=== PATIENT | male | born 1980 | race Caucasian/White ===

== ENCOUNTER 2016-04-19 17:03 | Inpatient (IN) | payer BC ==
[~2016-04-19] VITALS: Ht 185.4 cm; Wt 106.0 kg
[2016-04-22] MEDS ORDERED: ZESTRIL DPS5 MG PO (10:30)
[2016-04-22] MEDS ORDERED: FLAGYL-DPS500 MG PO (10:31)
[2016-04-22] MEDS ORDERED: CIPRO DPS500 MG PO (10:31)
[2016-04-22] MEDS ORDERED: TYLENOL325 MG PO (10:31)
--- NOTE | 2016-04-23 08:29 | HP ---
ADMIT: 04/19/2016 RM/LOC: [address] [facility] MR#: [id number] [address] [facility] [place], [place] [address] [address] [place] [address] History and Physical SEX: M AGE: 36 : 1980 DATE OF SERVICE: HISTORY OF PRESENT ILLNESS: This is a 36-year-old male seen in transfer from [place] with complaints of left lower quadrant abdominal pain. This started on Thursday of this week and bothered him intermittently through the week. He had persistence of the pain yesterday, which prompted a visit to the clinic today. Dr. Maravilla saw him in clinic and noticed that he had some tenderness on exam and subsequently sent him to the ER for evaluation with labs and a CT scan. CT scan was performed, which demonstrated perforated diverticulitis. He was subsequently transferred here for definitive care. He describes the pain as mild in nature. He did have some fever 2 of the nights this week, but has not had a fever today. He has never previously had episode of diverticulitis. He is otherwise without recent change in his health. PAST MEDICAL HISTORY: Hypertension. Prior traumatic head injury with compressed skull fracture at age 7. CURRENT MEDICATIONS: Lisinopril. ALLERGIES: NO KNOWN MEDICAL ALLERGIES. PAST SURGICAL HISTORY: None. FAMILY HISTORY: Significant for hypertension SOCIAL HISTORY: He quit smoking 3 years ago, had a prior history of smoking from the age of 19 before that. REVIEW OF SYSTEMS: A 10-point review of systems was performed. The gastrointestinal symptoms are listed in the history of present illness, and the remainder of the review of systems is negative for change. PHYSICAL EXAMINATION: GENERAL: Abida is alert, oriented, and in no acute distress. VITAL SIGNS: His admission vital signs; temperature 97.2, pulse of 80, respiratory rate of 18, and blood pressure 129/80. HEENT: Sclerae appear grossly anicteric. NECK: Trachea is midline. LUNGS: Clear bilaterally. HEART: Regular rate and rhythm. ABDOMEN: Tender to palpation with only mild guarding in the left lower quadrant with deep palpation. There is no josé miguel diffuse peritoneal sign. No rebound tenderness currently. No palpable masses. EXTREMITIES: Calves are soft bilaterally with no clubbing, cyanosis, or ADMIT: 04/19/2016 RM/LOC: [address] [facility] MR#: [id number] [address] [facility] [address] [place], [place] [address] [address] [place], [place] [id number] History and Physical SEX: M AGE: 36 : 1980 edema. Cranial nerves were tested and intact. IMPRESSION: Perforated diverticulitis. PLAN: I have recommended continuing conservative measures with IV antibiotic therapy and bowel rest. I discussed the spectrum of response to this therapy including clinical deterioration, necessitating laparotomy, bowel resection, colostomy, or at least repeat CT and possible abscess drainage if it is formed. If he has clinical improvement, would plan for IV and gradually transition to p.o. antibiotic therapy with outpatient elective colonoscopy and further discussion regarding elective colectomy. I discussed this again in detail with Abida, and he understands the plan and agrees. Nikolay Alford MD/ baljinder JOB #: [id number] CC: Nikolay Alford, Attending Physician Nikolay Alford, Family Physician
--- NOTE | 2016-04-30 08:55 | DS ---
ADMIT: 04/19/2016 RM/LOC: [address] [facility] MR#: [id number] [address] [facility] [address] [place], [place] [address] [address] [place] [address] Discharge Summary SEX: M AGE: 36 : 1980 ADMISSION DATE: 04/19/2016 DISCHARGE DATE: 04/21/2016 ADMISSION DIAGNOSIS: Perforated diverticulitis. DISCHARGE DIAGNOSIS: Perforated diverticulitis. REASON FOR ADMISSION: For details of the history and physical, please see the chart. DESCRIPTION OF HOSPITAL COURSE: The patient was kept n.p.o. with ice chips only at admission and placed on IV antibiotic therapy. On hospital day number two, his white count had normalized and his pain had improved. His diet was started at that point. By hospital day number three, he was tolerating a regular diet with no worsening of his pain. He remained clinically stable with a normal white blood cell count. At that time, he was discharged to home. For any additional details of his hospital stay, please see the chart. DISCHARGE INSTRUCTIONS: He was to follow up with me in [place] a week to two weeks after discharge. He was discharged on a regular diet. He was given oral antibiotic therapy for an additional ten days. He was to call prior to followup with any worsening of pain, fever, or other complaints. Nikolay Alford MD/ jarod JOB #: [id number] CC: Nikolay Alford MD, Attending Physician Nikolay Alford MD, Family Physician
== END 2016-04-21 17:15 | disposition home or self-care (01) | DRG 392 ==
LOC: 5MS 17:03
PROVIDERS: ADMIT Surgery
DX: K57.80 Diverticulitis of intestine, part unspecified, with perforation and abscess without bleeding (principal); I10 Essential (primary) hypertension; Z87.891 Personal history of nicotine dependence